=== PATIENT | female | born 1960 | race Caucasian/White ===

== ENCOUNTER 2023-12-30 13:26 | Emergency (ER) | payer BC, MEDICARE, OTHER ==
[~2023-12-30] VITALS: Ht 165.1 cm; Wt 76.2 kg
[~2023-12-30 13:26] MED LIST: [UNRECOGNIZED DRUG - REMARK]
[2023-12-30 13:48] LABS: BASOPHILS % (AUTO) 0.5 % (0.0-2.0); EOSINOPHILS # (AUTO) 0.1 K/uL (0.0-0.7); EOSINOPHILS % (AUTO) 2.5 % (0.0-6.0); HEMATOCRIT 42 % (33-45); HEMOGLOBIN 14.2 g/dL (11.5-14.8); LYMPHOCYTES # (AUTO) 2.6 K/uL (0.8-4.8); LYMPHOCYTES % (AUTO) 46.7 % (20.0-44.0); MEAN CORPUSCULAR HEMOGLOBIN 32 PG (26.0-33.0); MEAN CORPUSCULAR HGB CONC 34 g/dl (31.0-36.0); MEAN CORPUSCULAR VOLUME 94 fL (82-100); MONOCYTES # (AUTO) 0.5 K/uL (0.1-1.30); MONOCYTES % (AUTO) 8.4 % (2.0-12.0); NEUTROPHILS # (AUTO) 2.3 K/uL (1.8-8.9); NEUTROPHILS % (AUTO) 41.9 % (43.0-81.0); PLATELET COUNT (AUTO) 280 K/uL (150-450); RED BLOOD CELL COUNT(AUTO) 4.49 MIL/uL (4.0-5.2); RED CELL DISTRIBUTION WIDTH 13.5 % (11.5-15.0); WHITE BLOOD COUNT (AUTO) 5.6 K/uL (4.3-11.0)
[2023-12-30 14:02] LABS: CALCIUM, SERUM 9.1 mg/dL (8.5-10.1); CARBON DIOXIDE 27 mmol/L (21-32); CHLORIDE 100 mmol/L (98-107); GLUCOSE 141 mg/dL (74-106); POTASSIUM 3.8 mmol/L (3.5-5.1); SODIUM SERUM 133 mmol/L (136-145); UREA NITROGEN, BLOOD 13 mg/dL (7-18)
[2023-12-30] MEDS ORDERED: ONDANSETRON HCL/PF 4 MG/2 ML VIAL ONE (14:35)
[2023-12-30] MEDS ORDERED: MECLIZINE HCL 25 MG TABLET ONE (14:36)
[2023-12-30] MEDS: IV NS 0.9% 1,000 ML BAG IV ONE (14:51)
[2023-12-30] MEDS: ONDANSETRON HCL/PF 4 MG/2 ML VIAL IVP ONE (14:52)
[2023-12-30] MEDS: MECLIZINE HCL 12.5 MG TABLET PO ONE (14:55)
[2023-12-30 16:42] LABS: THYROID STIMULATING HORMONE 2.127 uIU/mL (0.358-3.74)
[2023-12-30 16:56] LABS: APPEARANCE,URINE Clear (CLEAR); BILIRUBIN,URINE Negative (NEGATIVE); BLOOD, URINE Trace-lysed Ery/uL (NEGATIVE); COLOR,URINE LIGHT YELLOW (YELLOW); KETONES,URINE Negative (NEGATIVE); LEUKOCYTE ESTERASE ,URINE Negative (NEGATIVE); NITRITE, URINE Negative (NEGATIVE); PROTEIN,URINE Negative (NEGATIVE); UGLUCOSE Negative (NEGATIVE); UROBILINOGEN,URINE 0.2 EU/dL (0.2)
[2023-12-30] MEDS ORDERED: MECL-159 PO (17:30)
[2023-12-30 17:32] LABS: WBC,URINE 0-2 /HPF (0-3)
[2023-12-30 17:33] LABS: ADD URINE CULTURE NO; BACTERIA,URINE Rare /HPF (None Seen); SQUAMOUS EPITHELIAL CELL,UR Rare /HPF (None Seen)
[2023-12-30 17:57] VITALS: BP 131/77; TEMP 98.3; O2SAT 100
== END 2023-12-30 18:00 | disposition home or self-care (01) ==
LOC: ER 13:56
DX: R42 Dizziness and giddiness (principal); R11.0 Nausea; E03.9 Hypothyroidism, unspecified; Z88.5 Allergy status to narcotic agent; Z88.8 Allergy status to other drugs, medicaments and biological substances
CPT/HCPCS: 99285; 96374; 70450; 96361; 93005; 85025; 80048; 81001; 36415; 84443; 84484 ×2; 83880; J8597; J2405; J7030